=== PATIENT | female | born 1980 | race Caucasian/White ===

== ENCOUNTER 2016-12-21 14:23 | Emergency (ER) | payer SELFPAY ==
[2016-12-21 14:30] VITALS: BP 133/96
[2016-12-21] MEDS ORDERED: Lidocaine 2% PF * 5 ML VIAL INJ ONE (14:54)
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
== END 2016-12-21 15:25 | disposition home or self-care (01) ==
LOC: UCEAST 14:23
DX: S61.412A Laceration without foreign body of left hand, initial encounter (principal); W26.0XXA Contact with knife, initial encounter; Y93.G1 Activity, food preparation and clean up; Y92.9 Unspecified place or not applicable; Y99.0 Civilian activity done for income or pay; Z90.49 Acquired absence of other specified parts of digestive tract
CPT/HCPCS: 12001; 99211; G0463

== ENCOUNTER 2017-10-04 09:07 | Emergency (ER) | payer OTHER ==
--- NOTE | 2017-10-04 10:24 | RAD ---
Indication: Left knee injury. 3 views of left knee demonstrates no fracture. No other bone or joint abnormality is identified. IMPRESSION: No fracture of the left knee is noted.
--- NOTE | 2017-10-04 10:24 | RAD ---
Indication: Left hip injury. 2 views of the left hip and an AP view the pelvis demonstrates no fracture. Pelvic ring is intact. Sacroiliac joints are unremarkable. IMPRESSION: No fracture of the left hip is noted.
--- NOTE | 2017-10-04 11:08 | ED ---
Lower Extremity - HPI Summary HPI Summary: Patient is a 37-year-old female presenting to the ED approximately 12 hours after falling directly onto the left knee with pain radiating up into the left hip. She remains ambulatory. Pain is 7/10, intermittent and worse with ambulation, better with rest. She endorses worsening pain to the posterior upper leg extending into the left hip and radiating over into the right hip. Pain in the knee with ambulation, however rest denies any pain. Denies swelling , erythema, abrasions or other signs of trauma. She states she is otherwise healthy. She's been taking ibuprofen with minimal relief. - History of Current Complaint Chief Complaint: EDExtremityLower Stated Complaint: LT KNEE/BACK PAIN Time Seen by Provider: 10/04/17 09:23 Hx Obtained From: Patient Hx Last Menstrual Period: 11/24/16 Mechanism Of Injury: Direct Blow Onset of Pain: Minutes Onset/Duration: Minutes Severity Initially: Moderate Severity Currently: Moderate Pain Intensity: 8 Pain Scale Used: 0-10 Numeric Timing: Constant Location: Is Discrete @ - left knee and left hip Character Of Pain: Aching Associated Signs And Symptoms: Positive: Knee Pain Aggravating Factor(s): Standing, Ambulation Alleviating Factor(s): Rest Able to Bear Weight: Yes - Risk Factors Gout Risk Factors: Negative DVT Risk Factors: Negative Septic Arthritis Risk Factor: Negative - Allergies/Home Medications Allergies/Adverse Reactions: Allergies Allergy/AdvReac Type Severity Reaction Status Date / Time No Known Allergies Allergy Verified 10/04/17 09:24 PMH/Surg Hx/FS Hx/Imm Hx Previously Healthy: Yes Endocrine/Hematology History: Denies: Hx Diabetes, Hx Thyroid Disease Cardiovascular History: Denies: Hx Hypertension Respiratory History: Denies: Hx Asthma, Hx Chronic Obstructive Pulmonary Disease (COPD) GI History: Denies: Hx Ulcer - Surgical History Surgery Procedure, Year, and Place: [id number], Gallbladder 2003 - Immunization History Date of Tetanus Vaccine: Up to date, uncertain of date. Date of Influenza Vaccine: None Hx Pertussis Vaccination: No Immunizations Up to Date: Yes Infectious Disease History: No Infectious Disease History: Denies: Hx Hepatitis, Hx Human Immunodeficiency Virus (HIV), History Other Infectious Disease, Traveled Outside the [place] in Last 30 Days - Family History Known Family History: Positive: Hypertension - Social History Occupation: Employed Full-time Lives: With Family Alcohol Use: Occasionally Hx Substance Use: No Substance Use Type: Reports: None Hx Tobacco Use: No Smoking Status (MU): Never Smoked Tobacco Review of Systems Constitutional: Negative Negative: Fever, Chills, Fatigue, Skin Diaphoresis Negative: Palpitations, Chest Pain Negative: Shortness Of Breath, Cough Genitourinary: Negative Positive: no symptoms reported, see HPI Positive: Arthralgia - left knee and left hip pain, Myalgia Skin: Negative Neurological: Negative All Other Systems Reviewed And Are Negative: Yes Physical Exam Triage Information Reviewed: Yes Vital Signs On Initial Exam: Initial Vitals Temp Pulse Resp BP Pulse Ox 98.0 F 86 16 107/90 97 10/04/17 09:10 10/04/17 09:10 10/04/17 09:10 10/04/17 09:10 10/04/17 09:10 Vital Signs Reviewed: Yes Appearance: Positive: Well-Appearing, Well-Nourished Skin: Positive: Warm, Skin Color Reflects Adequate Perfusion Head/Face: Positive: Normal Head/Face Inspection Eyes: Positive: EOMI, EDU, Conjunctiva Clear Neck: Positive: Supple, No Lymphadenopathy Respiratory/Lung Sounds: Positive: Clear to Auscultation, Breath Sounds Present Cardiovascular: Positive: RRR, Pulses are Symmetrical in both Upper and Lower Extremities Musculoskeletal: Positive: Pain @ - left knee and left hip (most notably radiating up the posterior leg) without associated swelling, erythema Neurological: Positive: Speech Normal Psychiatric: Positive: Normal, Affect/Mood Appropriate Diagnostics - Vital Signs Vital Signs Temp Pulse Resp BP Pulse Ox 10/04/17 09:10 98.0 F 86 16 107/90 97 - Laboratory Lab Statement: Any lab studies that have been ordered have been reviewed, and results considered in the medical decision making process. Lower Extremity Course/Dx - Course Course Of Treatment: During the course of treatment, the patient is evaluated for left knee pain radiating up into the left hip. Discussed obtaining x-ray of the knee and the hip to assess for any impaction. X-ray of the knee and hip show no acute fractures or other findings. Patient is made aware. If symptoms persist, she will follow-up with orthopedics. Referral is given. I have encouraged ibuprofen and moist heat at this time. She is okay with this plan and discharged. She remains ambulating well. She will be diagnosed with nerve pain secondary to trauma. - Diagnoses Provider Diagnoses: Knee pain, Nerve pain Discharge - Sign-Out/Discharge Documenting (check all that apply): Discharge/Admit/Transfer - Discharge Plan Condition: Stable Disposition: HOME Patient Education Materials: Lumbar Radiculopathy (ED), Knee Pain (ED) Referrals: Jack Navarrete MD [Primary Care Provider] - Adina Davila MD [Medical Doctor] - Additional Instructions: Ibuprofen 600 mg 3 times daily Tylenol 650 mg 3 times daily Moist heat to the area Follow-up with orthopedics for any worsening or changing symptoms - Billing Disposition and Condition Condition: STABLE Disposition: Home
[2017-10-04 11:16] VITALS: BP 125/78
== END 2017-10-04 11:15 | disposition home or self-care (01) ==
LOC: ED 09:07
DX: M25.562 Pain in left knee (principal); M79.2 Neuralgia and neuritis, unspecified; W19.XXXA Unspecified fall, initial encounter; Y92.9 Unspecified place or not applicable
CPT/HCPCS: 99281

== ENCOUNTER 2017-11-30 19:11 | Emergency (ER) | payer OTHER ==
[2017-11-30] MEDS ORDERED: Cephalexin CAP* 500 MG PO ONE (20:40)
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
[2017-11-30 21:08] VITALS: BP 120/76
== END 2017-11-30 21:07 | disposition home or self-care (01) ==
LOC: ED 19:11
DX: L03.116 Cellulitis of left lower limb (principal); R21 Rash and other nonspecific skin eruption
CPT/HCPCS: 99282; A9270-GY

== ENCOUNTER 2018-06-17 08:07 | Emergency (ER) | payer OTHER ==
[2018-06-17 08:23] VITALS: BP 130/95
--- NOTE | 2018-06-17 08:34 | UC ---
Neck Pain HPI - HPI Summary HPI Summary: Patient Chief Complaint: Bilateral neck discomfort. Moderate. Last night she slept and hit the side of her face against the armrest in her truck. This sudden movement of her neck created pain and numbness in her left arm for 15 minutes. The numbness resolved, but today she has residual bilateral trapezius discomfort at the top of the shoulders, left worse than right. This is aggravated by neck movement. She has no complaints of numbness or weakness. She is no complaints of abnormal sensation in the lower extremities. Visit History Reviewed. Noncontributory to present complaint. Medications & Allergies Reviewed. Nurse: "pt slipped a week ago, and hit her neck on the door of her car, and her neck is still hurting, causing headaches. some numbness in her left arm yesterday. pt with nausea with movement." - History of Current Complaint Chief Complaint: UCHeadache Stated Complaint: NECK PAIN Time Seen by Provider: 06/17/18 08:32 Hx Obtained From: Patient Hx Last Menstrual Period: 05/18/18 Pain Intensity: 8 - Allergies/Home Medications Allergies/Adverse Reactions: Allergies Allergy/AdvReac Type Severity Reaction Status Date / Time bee pollen Allergy Rash Verified 06/17/18 08:23 Home Medications: Home Medications Cetirizine HCl [Zyrtec] 10 mg PO DAILY PRN 06/17/18 [History Confirmed 06/17/18] Ibuprofen 800 mg PO ONCE PRN 06/17/18 [History Confirmed 06/17/18] PMH/Surg Hx/FS Hx/Imm Hx - Additional Past Medical History Additional PMH: PMH reviewed. Tonsillectomy; kidney stone. Family History: -Denies hypertension, heart disease, stroke, diabetes, cancer. 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 Environment: lives with family Habits: non smoker Previously Healthy: Yes - Surgical History Surgical History: Yes Surgery Procedure, Year, and Place: [id number], Gallbladder 2003 - Family History Known Family History: Positive: Hypertension - Social History Alcohol Use: Occasionally Substance Use Type: None Smoking Status (MU): Never Smoked Tobacco Review of Systems All Other Systems Reviewed And Are Negative: Yes Constitutional: Negative: Fever Respiratory: Positive: Negative Cardiovascular: Positive: Negative Gastrointestinal: Positive: Negative Genitourinary: Positive: Negative Motor: Positive: Negative Neurovascular: Positive: Negative Musculoskeletal: Positive: Myalgia - bilateral cervical muscle Is Patient Immunocompromised?: No - Comments Additional Review of Systems Comments: A 12 point review of systems was completed and was significantly positive for: neck muscle discomfort. The remainder of the review was negative except as stated above in the ROS or HPI. Physical Exam - Summary Physical Exam Summary: Appearance: The patient is well-appearing, is in no pain or distress, and is well-nourished. Eyes: Conjunctiva are clear. Pupils are equal and reactive to light and accommodation. Extra ocular muscle movement is intact. ENT: The hearing is grossly normal, the pharynx is normal, and the TMs are normal. There is no muffled or hoarse voice. No stridor. Neck: The neck is supple and there is no lymphadenopathy. Respiratory: The chest is nontender to palpation and without crepitus. The lungs are clear, there are normal breath sounds, and there is no respiratory distress. No wheezes, rales or rhonchi. Cardiovascular: Heart sounds reveal a regular rate and rhythm. There are no clicks, rubs or murmurs. There are no carotid bruits or thrills. Circulation is grossly intact. Abdomen: The abdomen is soft and nontender. There is no organomegaly. Bowel sounds are present and within normal limits. No point tenderness at McBurneys point. Musculoskeletal: Strength is intact. The patient moves all extremities. Neurological: The patient is alert. Motor and sensory are examination grossly intact. Speech is normal. Psychological: The patient displays age appropriate behavior Skin: Negative for rashes. Triage Information Reviewed: Yes Vital Signs: Initial Vital Signs Temp 96.8 F 06/17/18 08:14 Pulse 91 06/17/18 08:14 Resp 18 06/17/18 08:14 BP 130/95 06/17/18 08:14 Pulse Ox 99 06/17/18 08:14 Neck Pain Course/Dx - Course Course Of Treatment: Bilateral neck discomfort. Moderate. Last night she slept and hit the side of her face against the armrest in her truck. This sudden movement of her neck created pain and numbness in her left arm for 15 minutes. The numbness resolved, but today she has residual bilateral trapezius discomfort at the top of the shoulders, left worse than right. This is aggravated by neck movement. She has no complaints of numbness or weakness. She is no complaints of abnormal sensation in the lower extremities. 5 views of the cervical spine are reviewed. The vertebral bodies appear normal in height. Spinal canal appears to be intact. No prevertebral soft tissue swelling is noted. IMPRESSION: No fracture of the cervical spine is noted. My diagnosis is cervical muscle strain. The patient was given a soft collar. She will use warm moist heat in the morning and ice to the area as needed. We also discussed using acetaminophen and ibuprofen for analgesia. She knows to be reexamined. If she has any numbness or weakness. MEDICATIONS REVIEWED: Medications have been included in the original chart and reviewed. HYPERTENSION STATUS REVIEWED. HTN NOTED: follow up with PCP within 4 weeks to recheck blood pressure has been recommended to patient. Patient voices understanding. - Differential Dx/Diagnosis Differential Dx/HQI/PQRI: Sprain, Strain, Trauma Provider Diagnosis: Cervical muscle strain Discharge - Sign-Out/Discharge Documenting (check all that apply): Patient Departure All imaging exams completed and their final reports reviewed: Yes - Discharge Plan Condition: Stable Disposition: HOME Patient Education Materials: Cervical Strain (DC) Forms: *Work Release Referrals: Jack Navarrete MD [Primary Care Provider] - Additional Instructions: WE DISCUSSED: PLEASE SEEK CARE AT THE EMERGENCY DEPARTMENT IF SYMPTOMS WORSEN OR IF NEW SYMPTOMS DEVELOP. FOLLOW UP WITH YOUR PRIMARY CARE PHYSICIAN IF CONDITION CONTINUES BEYOND 3 DAYS WITHOUT IMPROVEMENT. We are open from 7 a.m. to 10 p.m. Call us with any questions or concerns. YOUR DIAGNOSIS IS: cervical muscle strain YOUR PRESCRIPTION RECOMMENDATION IS: warm moist heat in the morning, ice to neck muscles during the day. OTHER INSTRUCTIONS: Hypertension Discharge Instructions: Your blood pressure reading today was 135/95, indicating HYPERTENSION. Follow- up with your primary care provider within 4 weeks for blood pressure check and appropriate recommendations and treatment, as needed. This reading may be caused by your discomfort, but you should recheck it. For pain: Ibuprofen (Motrin and other brand names) 400-600mg PLUS acetaminophen (Tylenol and other brand names) 500mg - 1000mg every 8 hours. Maximum is 3 doses a day. If this dosage is required for more than 5 days, you should re-check with your doctor. The combination of these two over-the- counter medications can be more effective than each one taken alone. Please check with the pharmacist if you have questions about your allergies to these medications. - Billing Disposition and Condition Condition: STABLE Disposition: Home
== END 2018-06-17 09:56 | disposition home or self-care (01) ==
LOC: UCEAST 08:07
DX: S16.1XXA Strain of muscle, fascia and tendon at neck level, initial encounter (principal); Z90.89 Acquired absence of other organs; Z91.030 Bee allergy status; W22.8XXA Striking against or struck by other objects, initial encounter; Y92.9 Unspecified place or not applicable
CPT/HCPCS: 72050; 84702; 99213; G0463

== ENCOUNTER → 2018-06-19 14:30 | Emergency (ER) | payer OTHER ==
[~2018-06-19 14:30] MED LIST: Bupivacaine 0.5% W/EPI SDV* 30 ML VIAL INJ ONE; Bupivacaine 0.5% W/EPI SDV* 30 ML VIAL ONE
[2018-06-19 14:42] VITALS: BP 154/90
--- NOTE | 2018-06-19 16:37 | ED ---
Neck Pain - HPI Summary HPI Summary: This patient is a 38 year old F presenting to [facility] accompanied by with a chief complaint of neck pain that began one week ago. Patient states her neck and head pain began when she fell out of a car approximately one week ago, and pain has not improved since then. The patient rates the pain 6/10 in severity. Symptoms aggravated by nothing. Symptoms alleviated by nothing. Patient reports head pain, swelling of bilateral hands, numbness and tingling in bilateral hands , and migraine in R eye. Patient states her neck and head pain began when she fell out of a car approximately one week ago, and pain has not improved since then. - History of Current Complaint Chief Complaint: EDGeneral Stated Complaint: "HANDS ARE SLEEPING, VERY UNCORMFORTABLE" PER PT Time Seen by Provider: 06/19/18 16:22 Hx Obtained From: Patient Hx Last Menstrual Period: 05/18/18 Onset/Duration Of Injury/Symptoms: Weeks Timing: Constant Onset/Duration: Sudden Onset, Started weeks ago, Still Present Severity Initially: Moderate Severity Currently: Moderate Pain Intensity: 6 Pain Scale Used: 0-10 Numeric Aggravating Factors: Nothing Alleviating Factors: Nothing Associated Signs & Symptoms: Positive: Headache - Allergies/Home Medications Allergies/Adverse Reactions: Allergies Allergy/AdvReac Type Severity Reaction Status Date / Time bee pollen Allergy Rash Verified 06/17/18 08:23 PMH/Surg Hx/FS Hx/Imm Hx Previously Healthy: No Endocrine/Hematology History: Denies: Hx Diabetes, Hx Thyroid Disease Cardiovascular History: Denies: Hx Hypertension Respiratory History: Denies: Hx Asthma, Hx Chronic Obstructive Pulmonary Disease (COPD) GI History: Denies: Hx Ulcer Neurological History: Reports: Hx Headaches - Surgical History Surgery Procedure, Year, and Place: [id number], Gallbladder 2003 - Immunization History Date of Tetanus Vaccine: Up to date, uncertain of date. Date of Influenza Vaccine: None Infectious Disease History: No Infectious Disease History: Denies: Hx Hepatitis, Hx Human Immunodeficiency Virus (HIV), History Other Infectious Disease, Traveled Outside the [place] in Last 30 Days - Family History Known Family History: Positive: Hypertension - Social History Occupation: Employed Full-time Lives: With Family Alcohol Use: Occasionally Hx Substance Use: No Substance Use Type: Reports: None Hx Tobacco Use: No Smoking Status (MU): Never Smoked Tobacco Review of Systems Positive: Other - Positive neck pain, head pain, and swelling in bilateral hands Neurological: Other - Positive numbness and tingling in bilateral hands Positive: Headache All Other Systems Reviewed And Are Negative: Yes Physical Exam - Summary Physical Exam Summary: Appearance: Well appearing, no pain distress Skin: warm, dry, reflects adequate perfusion Head/face: normal Eyes: EOMI, EDU ENT: mucous membranes moist Neck: supple, Slight tenderness in left paracervical muscle. No midline tenderness. Respiratory: CTA, breath sounds present Cardiovascular: RRR, pulses symmetrical Abdomen: non-tender, soft Bowel Sounds: present Musculoskeletal: normal, Full ROM in upper extremities. Full strength. Subjective numbness throughout left hand. Neuro: normal, sensory motor intact, A&Ox3 Triage Information Reviewed: Yes Vital Signs On Initial Exam: Initial Vitals Temp Pulse Resp BP Pulse Ox 98.4 F 87 16 154/90 99 06/19/18 14:36 06/19/18 14:36 06/19/18 14:36 06/19/18 14:36 06/19/18 14:36 Vital Signs Reviewed: Yes Procedures - Procedure Summary Procedure Summary: Trigger point injection of the cervical musculature: Indication: Neck pain Description: Patient posterior neck in the bilateral cervical musculature was cleaned with alcohol. She was injected in both sides with a total of 10 cc of 0.5% bupivacaine with epinephrine and divided aliquots at several trigger points. The medication was then massaged through the tissues. She had significant relief of both her neck pain and her headache. She tolerated this well without complication. Diagnostics - Vital Signs Vital Signs Temp Pulse Resp BP Pulse Ox 06/19/18 14:36 98.4 F 87 16 154/90 99 - Laboratory Lab Statement: Any lab studies that have been ordered have been reviewed, and results considered in the medical decision making process. Re-Evaluation - Re-Evaluation First Eval Re-Evaluation Time: 16:40 Change: Improved Comment: Patient reports her headache is gone Neck Course/Dx - Course Course Of Treatment: Nurse's notes reviewed. Patient with muscle stiffness after injury with negative x-rays a week ago. She has some nonphysiologic distribution numbness in the left hand. Normal strength and range of motion. Some limitation of range of motion with rightward head movement. Trigger point injections performed with significant relief. Discharged to follow up with primary care physician. - Diagnoses Differential Dx/HQI/PQRI: Positive: Arthritis, Sprain, Strain Provider Diagnoses: Cervical strain, Cervical radiculopathy Discharge - Sign-Out/Discharge Documenting (check all that apply): Patient Departure Patient Received Moderate/Deep Sedation with Procedure: No - Discharge Plan Condition: Improved Disposition: HOME Prescriptions: Cyclobenzaprine (NF) [Cyclobenzaprine 5 MG (NF)] 5 mg PO TID PRN #15 tab PRN Reason: muscle pain Dexamethasone [Decadron] 8 mg PO DAILY #8 tablet Patient Education Materials: Cervical Strain (ED), Cervical Radiculopathy (ED) Referrals: Jack Navarrete MD [Primary Care Provider] - Additional Instructions: Call your doctor first thing Thursday to schedule follow-up. You may need further imaging test such as an MRI if he continued to have neurologic symptoms. Wear your soft collar for comfort. Do not drive will taking cyclobenzaprine. Return if worse, and weakness, numbness, new symptoms or other concerns. - Billing Disposition and Condition Condition: IMPROVED Disposition: Home - Attestation Statements Document Initiated by Johnathonibe: Yes Documenting Scribe: Elma Barrios Provider For Whom Dafne is Documenting (Include Credential): Dr. Arcadio Aguero MD Scribe Attestation: IElma, scribed for Dr. Arcadio Aguero MD on 06/19/18 at 1714. Scribe Documentation Reviewed: Yes Provider Attestation: The documentation as recorded by the Elma vazquez accurately reflects the service I personally performed and the decisions made by me, Dr. Arcadio Aguero MD Status of Scribe Document: Viewed
== END | disposition home or self-care (01) ==
LOC: ED 14:30
DX: S16.1XXA Strain of muscle, fascia and tendon at neck level, initial encounter (principal); M54.12 Radiculopathy, cervical region; R51 Headache; M79.89 Other specified soft tissue disorders; W19.XXXA Unspecified fall, initial encounter; Y92.9 Unspecified place or not applicable; Z91.030 Bee allergy status
CPT/HCPCS: 96372; 99282

== ENCOUNTER 2019-01-20 07:16 | Emergency (ER) | payer OTHER ==
[2019-01-20 07:28] VITALS: BP 109/78
--- NOTE | 2019-01-20 07:51 | UC ---
Complaint Female HPI - HPI Summary HPI Summary: CHIEF COMPLAINT and HPI: This is a healthy 38-year-old white female whose previous history of UTI was approximately 8 years ago, who complains of significant urgency and frequency beginning this morning. She denies back pain or fever. the pain occurs when she tries to go to the bathroom and is moderate at that time. It's a cramping, squeezing pain. VITAL SIGNS & SaO2 REVIEWED. Within normal limits unless noted here.no fever noted. NURSES NOTE REVIEWED. - History Of Current Complaint Chief Complaint: UCGU Stated Complaint: URINARY ISSUE Time Seen by Provider: 01/20/19 07:23 Hx Obtained From: Patient Hx Last Menstrual Period: 01/08/19 Pain Intensity: 8 - Allergies/Home Medications Allergies/Adverse Reactions: Allergies Allergy/AdvReac Type Severity Reaction Status Date / Time bee venom protein (honey bee) Allergy Rash Verified 01/20/19 07:29 Home Medications: Home Medications ALPRAZolam TAB* [Xanax TAB*] 0.25 mg PO PRN 01/20/19 [History] PMH/Surg Hx/FS Hx/Imm Hx - Additional Past Medical History Additional PMH: PAST MEDICAL HISTORY- patient has had her gallbladder removed. No history of kidney disease, but she did have a kidney stone in her 20s. CHRONIC and RECURRENT HEALTH PROBLEM LIST REVIEWED. Information relevant to present complaint: previous UTI 8 years ago. VISIT HISTORY REVIEWED: lumbar pain. MEDICATIONS & ALLERGIES REVIEWED.no allergies to medication. HYPERTENSION STATUS:no hypertension. FAMILY HISTORY: noncontributoryto present complaint. 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 . Previously Healthy: Yes - Surgical History Surgical History: Yes Surgery Procedure, Year, and Place: [id number], Gallbladder 2003 - Family History Known Family History: Positive: Hypertension - Social History Alcohol Use: Rare Substance Use Type: None Smoking Status (MU): Never Smoked Tobacco Review of Systems All Other Systems Reviewed And Are Negative: Yes Constitutional: Positive: Negative Respiratory: Positive: Negative Cardiovascular: Positive: Negative Gastrointestinal: Positive: Negative Genitourinary: Positive: Dysuria, Frequency, Urgency. Negative: Vaginal/Penile Discharge Psychological: Positive: Anxious Is Patient Immunocompromised?: No Physical Exam - Summary Physical Exam Summary: Appearance: The patient is well-appearing, is in no pain or distress, and is well-nourished. Eyes: Conjunctiva are clear. Pupils are equal and reactive to light and accommodation. Extra ocular muscle movement is intact. ENT: The hearing is grossly normal, the pharynx is normal, and the TMs are normal. There is no muffled or hoarse voice. No stridor. Neck: The neck is supple and there is no lymphadenopathy. Respiratory: The chest is non-tender to palpation and without crepitus. The lungs are clear, there are normal breath sounds, and there is no respiratory distress. No wheezes, rales or rhonchi. Cardiovascular: Heart sounds reveal a regular rate and rhythm. There are no clicks, rubs or murmurs. There are no carotid bruits or thrills. Circulation is grossly intact. Abdomen: The abdomen is soft and nontender. There is no organomegaly. Bowel sounds are present and within normal limits. No point tenderness at McBurneys point. No CVA tenderness. Mild supra pubic tenderness with palpation. Musculoskeletal: Strength is intact. The patient moves all extremities. Neurological: The patient is alert. Motor and sensory are examination grossly intact. Speech is normal. Psychological: The patient displays age appropriate behavior, and is conversant. GCS=15. Skin: Negative for rashes. Triage Information Reviewed: Yes Vital Signs: Initial Vital Signs Temp 97.0 F 01/20/19 07:25 Pulse 84 01/20/19 07:25 Resp 18 01/20/19 07:25 BP 109/78 01/20/19 07:25 Pulse Ox 100 01/20/19 07:25 Complaint Female Dx - Course Course Of Treatment: 38-year-old female with complaints beginning this morning that are consistent with the diagnosis of cystitis. She denies recent changes in soaps, habits, or recent intercourse or new partners. She denies vaginal discharge. She denies CVA tenderness. She does have a history of a kidney stone 20 years ago and a urinary tract infection 8 years ago. Her urine analysis shows 3+ leukocytes. My diagnosis is cystitis and she will be treated with Bactrim for 3 days with 1 refill and with Pyridium. She knows to call her physician or here if her condition worsens or does not resolve. - Differential Dx/Diagnosis Differential Diagnosis/HQI/PQRI: Ovarian Cyst, Pelvic Inflammatory Disease, Renal Colic, Ureteral Stone, Urinary Tract Infection Provider Diagnosis: Cystitis Discharge ED - Sign-Out/Discharge Documenting (check all that apply): Patient Departure All imaging exams completed and their final reports reviewed: No Studies - Discharge Plan Condition: Stable Disposition: HOME Prescriptions: Phenazopyridine TAB* [Pyridium TAB*] 200 mdi PO TID #6 tab MDD 3 Sulfamethox/Trimethoprim DS* [Bactrim DS 800/160 TAB*] 1 tab PO BID #6 tab MDD 2 Patient Education Materials: Urinary Tract Infection in Women (DC) Referrals: Jack Navarrete MD [Primary Care Provider] - Additional Instructions: WE DISCUSSED: PLEASE SEEK CARE AT THE EMERGENCY DEPARTMENT IF SYMPTOMS WORSEN OR IF NEW SYMPTOMS DEVELOP. FOLLOW UP WITH YOUR PRIMARY CARE PHYSICIAN IF CONDITION CONTINUES BEYOND 3 DAYS WITHOUT IMPROVEMENT. YOUR DIAGNOSIS IS:bladder infection; your urinary tract infection has not extended to your kidneys. YOUR PRESCRIPTION RECOMMENDATION IS:I have given you Bactrim 1 pill twice a day for 3 days with 1 refill. Filled a refill if you're not completely better in 3 days. Call your doctor if you have to start the refill. Recheck at any time for increased pain, urinary discomfort or fever. I've also given you Pyridium to help with the discomfort. FOR PAIN AND/OR SLEEP: For pain: Ibuprofen (Motrin and other brand names) 400-600mg PLUS acetaminophen (Tylenol and other brand names) 500mg - 1000mg every 8 hours. - Billing Disposition and Condition Condition: STABLE Disposition: Home
--- NOTE | 2019-01-21 16:01 | UC ---
- Progress Note Progress Note: Urine final culture with possible contamination. If pt is feeling better with Bactrim - no change If not feeling better - needs recheck with PCP Course/Dx - Diagnoses Provider Diagnoses: Cystitis Discharge ED - Sign-Out/Discharge Documenting (check all that apply): Post-Discharge Follow Up All imaging exams completed and their final reports reviewed: No Studies - Discharge Plan Condition: Stable Disposition: HOME Prescriptions: Phenazopyridine TAB* [Pyridium TAB*] 200 mdi PO TID #6 tab MDD 3 Sulfamethox/Trimethoprim DS* [Bactrim DS 800/160 TAB*] 1 tab PO BID #6 tab MDD 2 Patient Education Materials: Urinary Tract Infection in Women (DC) Referrals: Jack Navarrete MD [Primary Care Provider] - Additional Instructions: WE DISCUSSED: PLEASE SEEK CARE AT THE EMERGENCY DEPARTMENT IF SYMPTOMS WORSEN OR IF NEW SYMPTOMS DEVELOP. FOLLOW UP WITH YOUR PRIMARY CARE PHYSICIAN IF CONDITION CONTINUES BEYOND 3 DAYS WITHOUT IMPROVEMENT. YOUR DIAGNOSIS IS:bladder infection; your urinary tract infection has not extended to your kidneys. YOUR PRESCRIPTION RECOMMENDATION IS:I have given you Bactrim 1 pill twice a day for 3 days with 1 refill. Filled a refill if you're not completely better in 3 days. Call your doctor if you have to start the refill. Recheck at any time for increased pain, urinary discomfort or fever. I've also given you Pyridium to help with the discomfort. FOR PAIN AND/OR SLEEP: For pain: Ibuprofen (Motrin and other brand names) 400-600mg PLUS acetaminophen (Tylenol and other brand names) 500mg - 1000mg every 8 hours. - Billing Disposition and Condition Condition: STABLE Disposition: Home
== END 2019-01-20 08:08 | disposition home or self-care (01) ==
LOC: UCEAST 07:16
DX: N30.90 Cystitis, unspecified without hematuria (principal); Z91.030 Bee allergy status
CPT/HCPCS: 81003; 87086; 99212; G0463